=== PATIENT | female | born 1960 | race Caucasian/White ===

== ENCOUNTER 2022-04-01 20:55 | Outpatient (CLI) | payer OTHER, SELFPAY | END 2022-04-01 20:56 | disposition home or self-care (01) | LOC: AMB 04-07 11:41 | PROVIDERS: PCP Family Medicine; Visit Provider Family Medicine | DX: K92.1 Melena (principal); R19.5 Other fecal abnormalities; R19.7 Diarrhea, unspecified | CPT/HCPCS: A0425; A0429 ==

== ENCOUNTER 2022-04-01 21:15 | Emergency (ER) | payer OTHER, SELFPAY ==
[2022-04-01] VITALS (7 sets, daily range): BP systolic 100–137; BP diastolic 59–95; PULSE 109–116; TEMP 36.5; O2SAT 93–95; BMI 34.3
--- NOTE | 2022-04-01 22:18 | CRLHL7_ITS ---
For Patients: As a result of the Century Cures Act, medical imaging exams and procedure reports are released immediately into your electronic medical record. You may view this report before your referring provider. If you have questions, please contact your health care provider. INDICATION: Abdominal pain and hematochezia. TECHNIQUE: CT abdomen and pelvis without contrast. COMPARISON: None. FINDINGS: Lower chest: Mild bibasilar atelectasis. Liver: Diffuse hepatic steatosis. Gallbladder and bile ducts: Cholecystectomy. Pancreas: Unremarkable. No mass or inflammation. Spleen: Normal in size. No masses. Adrenal glands: Normal in size. No nodules. Kidneys: Normal in size. No suspicious masses, stones, or hydronephrosis. GI tract: Significant wall thickening and edema throughout the cecum, ascending colon, transverse colon and the predominant portion of the descending colon. Sigmoid and rectum are unremarkable. Small bowel loops are unremarkable. Appendix is not well visualized. Vasculature: Abdominal aorta is normal in caliber. Lymph nodes: No lymphadenopathy. Peritoneum/Abdominal Wall: Redemonstrated circumscribed fat density structure in the mid pelvis (2/145), may be related to prior epiploic appendagitis or omental infarct. Alternatively may represent a fatty lymph node. No sign of mass or infiltration. No free air or significant free fluid. Pelvis: Unremarkable. No pelvic masses. Bones: Unremarkable for age. IMPRESSION: Circumferential thickening and edema throughout the majority of the large colon with surrounding fat stranding most consistent with infectious/inflammatory colitis. The significant edema and wall thickening is more often seen with C diff colitis. Diffuse hepatic steatosis. Please note that all CT scans at this facility use dose modulation, iterative reconstruction, and/or weight-based dosing when appropriate to reduce radiation dose to as low as reasonably achievable. Dictated by Avtar Hua MD @ 04/01/2022 11:19:35 PM (Electronically Signed)
--- NOTE | 2022-04-01 23:10 | ED_ITS ---
HPI - Abdominal Pain General Chief Complaint: Abdominal Pain Stated Complaint: rectal bleeding Time Seen by Provider: 04/01/22 22:02 Source: patient, RN notes reviewed and old records reviewed Mode of arrival: EMS Limitations: other History of Present Illness HPI narrative: 62-year-old woman presenting to the emergency department with concern of blood in stool. Resident of [place]. She apparently has informed staff. She has had a couple of episodes of diarrheal stools with blood. Interview is challenged with recollection and slow distracted responses. She thinks was maybe the chili she had over the weekend that had triggered this. Is having some abdominal pain as well though that is not the initial complaint to me. I get the idea that the blood in her stool was voluminous the way she says ?oh y es?! to queries. Has not been feeling hot. She is unsure about this but apparently has not been on antibiotics recently. I am unable to verify this in record. Medical Problems: Schizoaffective disorder Schizoaffective disorder, bipolar type History of alcoholism Anxiety disorder Hyperlipidemia Hx of pancreatitis Rash Closed head injury Collar bone pain L sternoclavicular mass DMII (diabetes mellitus, type 2) Ear problem Hearing problem Chronic constipation Surgical Problems: History of tonsillectomy Related Data Home Medications Medication Instructions Recorded Confirmed Lactobacillus 4 cap PO DAILY 03/26/22 03/26/22 acidophilus-Bifidobac.animalis 31 billion cell capsule acetaminophen 325 mg tablet 325 - 650 mg PO Q4H PRN tab 03/26/22 03/26/22 votfx-n-kytbkuvvbpbbz 300 unit 300 unit PO QDAY PRN 03/26/22 03/26/22 disintegrating tablet buspirone 5 mg tablet 10 mg PO BID PRN tab 03/26/22 03/26/22 clozapine 100 mg tablet 225 mg PO .Bedtime 03/26/22 03/26/22 clozapine 25 mg tablet 225 mg PO .Bedtime 03/26/22 03/26/22 cranberry fruit concentrate 250 mg 450 mg PO TID tab 03/26/22 03/26/22 chewable tablet (Azo Cranberry) diphenhydramine HCl 25 mg capsule 25 mg PO cap 03/26/22 03/26/22 estradiol 0.01% (0.1 mg/gram) 1 VAGINAL DAILY 03/26/22 03/26/22 vaginal cream fluticasone propionate 50 1 INTRANASAL .Daily as needed PRN 03/26/22 03/26/22 mcg/actuation nasal spray,suspension ibuprofen 200 mg tablet 400 mg PO BID PRN tab 03/26/22 03/26/22 ketoconazole 2 % shampoo 1 TOPICAL .Twice Weekly 03/26/22 03/26/22 loperamide 1 mg/5 mL oral liquid 1 mg PO 03/26/22 03/26/22 magnesium hydroxide 400 mg/5 mL 30 ml PO .Daily as needed PRN ml 03/26/2203/26 oral suspension miconazole nitrate 2 % topical 2 applic TOPICAL PRN 03/26/22 03/26/22 cream mometasone 0.1 % topical solution 0.1 TOPICAL BID 03/26/22 03/26/22 fplanofq-kqulsbqf-vfif 8 mg-folic 1 tab PO QDAY 03/26/22 03/26/22 ac 400 mcg-vit K 10 mcg chew tablet (Centrum Chewables) polyethylene glycol 3350 17 17 g PO .Daily as needed PRN g 03/26/22 03/26/22 gram/dose oral powder quetiapine 200 mg tablet 100 mg PO .Am tab 03/26/22 03/26/22 quetiapine 300 mg tablet 300 mg PO .Bedtime tab 03/26/22 03/26/22 sennosides 8.6 mg-docusate sodium 1 PO .Daily as needed PRN 03/26/22 03/26/22 50 mg tablet sodium chloride 0.65 % nasal spray 0.65 INTRANASAL .As Needed PRN 03/26/22 03/26/22 aerosol triamcinolone acetonide 0.1 % 1 applic TOPICAL BID 03/26/22 03/26/22 topical cream wheat dextrin 3 gram/3.8 gram oral 1 PO 03/26/22 03/26/22 powder Previous Rx's Medication Instructions Recorded nystatin 100,000 unit/gram topical 1 applic TOPICAL TID #30 g 03/26/22 powder Bifidobacterium infantis 4 mg 4 mg PO QDAY #30 cap 03/28/22 capsule (Align) aspirin 81 mg tablet,delayed 81 mg PO DAILY #30 tab 03/28/22 release cholecalciferol (vitamin D3) 25 1,000 unit PO DAILY #30 tab 03/28/22 mcg (1,000 unit) tablet docusate sodium 100 mg capsule 100 mg PO BID #60 cap 03/28/22 lactase 3,000 unit tablet 3,000 unit PO TID #90 tab 03/28/22 loratadine 10 mg tablet 10 mg PO DAILY #30 tab 03/28/22 mirabegron 50 mg tablet,extended 50 mg PO DAILY #30 tab 03/28/22 release 24 hr omeprazole 20 mg capsule,delayed 20 mg PO DAILY #30 cap 03/28/22 release simvastatin 20 mg tablet 20 mg PO .Bedtime #30 tab 03/28/22 Allergies Allergy/AdvReac Type Severity Reaction Status Date / Time lanolin Allergy Intermediate Rash Verified 03/26/22 16:07 nickel Allergy Intermediate Rash Verified 03/26/22 16:07 latex Allergy Mild Unknown Verified 03/26/22 16:07 Sulfa drugs Allergy Mild Unknown Uncoded 03/26/22 16:07 Pollen AdvReac Intermediate runny Uncoded 03/26/22 16:07 nose, sneezing Review of Systems Status of ROS Reports: 10 or more systems reviewed and unremarkable except as noted in History and below Narrative This was attempted concerned of accuracy of this review of systems [facility] Medical History History of alcoholism History of pancreatitis Surgical History History of tonsillectomy (04/14/13) Social History Smoking Status: Former smoker Second hand tobacco smoke exposure: No How often do you have a drink containing alcohol: never AUDIT-C Alcohol total score: 0 Non-prescribed substance use: denies use Exam Narrative: Exam Narrative: Pleasant. NAD. Lying on her left side. Shirt is high-riding abdomen. Breathing easily. Again, somewhat slowed and a little confused in responses. Cranial nerves 2 through 12 intact Skin is warm and dry. Moving all extremities without difficulty. She is well perfused peripherally. Cardiovascular elevated rate regular rhythm. Distant. Oropharynx moist Abdomen is normoactive bowel sounds soft. Overweight. While generally tender is more so in the mid right and across the to the mid abdomen. No peritoneal signs appreciated. Const: Vital Signs, click to edit/add: Vital Signs - 24 hr 04/01/22 21:15 04/01/22 21:19 04/01/22 21:30 Temperature 97.7 F Pulse Rate [Left P ulse Oximeter] 114 H 114 H 113 H Blood Pressure [Ri ght Upper Arm] 137/80 137/80 108/72 Pulse Oximetry 95 95 94 04/01/22 22:00 04/01/22 22:45 04/01/22 23:00 Temperature Pulse Rate [Left P ulse Oximeter] 109 H 116 H 112 H Blood Pressure [Ri ght Upper Arm] 107/59 L 133/95 H 108/80 Pulse Oximetry 94 94 93 04/01/22 23:30 04/02/22 00:00 Temperature Pulse Rate [Left P ulse Oximeter] Blood Pressure [Ri ght Upper Arm] 100/64 95/70 Pulse Oximetry Documenting provider has reviewed patient's vital signs: yes Course Course Hospital Course: Curled on left side seems to be most comfortable. Blood pressure cuff has been reading off upper arm while she rests on the left arm She did not feel she needed anything for pain. I do think some IV fluids would be a good idea. Vital Signs Vital signs: Initial Vital Signs Pulse Rate 114 H 04/01/22 21:15 Blood Pressure 137/80 04/01/22 21:15 Blood Pressure Mean 99 04/01/22 21:15 Blood Pressure Position Supine 04/01/22 21:15 Pulse Oximetry 95 04/01/22 21:15 Oxygen Delivery Method 04/01/22 21:15 Vital Signs Pulse Rate 114 H 04/01/22 21:15 Blood Pressure 137/80 04/01/22 21:15 Pulse Oximetry 95 04/01/22 21:15 Temperature 97.7 F 04/01/22 21:19 Pulse Rate 112 H 04/01/22 23:00 Blood Pressure 95/70 04/02/22 00:00 Pulse Oximetry 93 04/01/22 23:00 MDM - Abdominal Pain MDM Narrative Medical decision making narrative: Given difficulty of interview, diffuse abdominal tenderness and blood as described in stool 80 think imaging would be prudent here. Labs pending as well. Made a couple of attempts to obtain stool sample for culture, C diff as well as stool guaiac. Ms. Christopher did not want to and/or was unable to leave a sample. I did review CT imaging can appreciate diffuse inflammatory changes from the colon more so on the right side colon. Slow to results white count did come back notably elevated at 16.8 and sodium was low at 129. Unsure what baseline is though was 140 1 year ago. Was ordered for a L and half of normal saline here. Would presume sodium around 132 on departure. Needs to follow up for recheck and med review. I'm unsure what changes have occurred recently. If she can produce a sample given radiology over-read, would screen for C diff as well as stool culture. Treatment accordingly. Medical Records Attestation: I reviewed the patient's medical records. Lab Data Attestation: I reviewed the patient's lab results. Labs: Lab Results 04/01/22 04/01/22 04/01/22 Range/Units 22:26 22:50 22:50 WBC 16.77 H (4.50-11.00) K/uL RBC 4.96 (4.00-5.20) m/uL Hgb 14.9 (12.0-16.0) gm/dL Hct 44.2 (33.0-51.0) % MCV 89 (80-100) fL MCH 30 (26-34) pg MCHC 34 (32-36) gm/dL Plt Count 280 (140-440) K/uL Neut % (Auto) 85.2 H (42.0-72.0) % Lymph % (Auto) 5.9 L (20-44) % [place] % (Auto) 7.6 (0.0-11.0) % Eos % (Auto) 0.1 (0.0-7.0) % Baso % (Auto) 0.2 (0.0-3.0) % Neut # (Auto) 14.30 H (1.7-7.0) K/uL Lymph # (Auto) 1.00 (0.90-2.90) K/uL [place] # (Auto) 1.30 H (0.00-0.90) K/UL Eos # (Auto) 0.00 (0.00-0.50) K/uL Baso # (Auto) 0.00 (0.00-0.30) K/uL Abs Immat Gran (auto) 0.20 (0.00-0.30) K/uL Imm/Tot Granulo (auto) 1.0 % Sodium 129 L (135-149) mmol/L Potassium 3.8 (3.6-5.1) mmol/L Chloride 98 (96-114) mmol/L Carbon Dioxide 24 (20-32) mmol/L BUN 22 (7-30) mg/dL Creatinine 0.9 (0.5-1.5) mg/dL Estimated Creat Clear 52.49 Estimated GFR 72 ml/min Glucose 210 H (60-115) mg/dL Calcium 8.9 (8.4-10.6) mg/dL Total Bilirubin 0.7 (0.1-1.5) mg/dL AST 43 H (12-35) U/L ALT 32 (4-35) U/L Alkaline Phosphatase 133 (40-150) U/L C-Reactive Protein 16.0 H (0.5-1.0) mg/dL Total Protein 5.8 L (6.0-8.3) g/dL Albumin 3.5 (3.3-5.0) g/dL SARS-CoV-2 (PCR) Negative SARS-CoV-2 (Negative) Discharge Plan Discharge Clinical Impression: Colitis, Hyponatremia Patient Disposition: Home w/ Parent or Adult Condition: Stable Additional Instructions: Focus on hydration. Slow advance of diet over the next 36 hours. Clear liquid/diluted juices. Increase to thicker soups and smoothies. Rice. [place]. Please follow-up at the end of this week to recheck labs. Also schedule follow-up with primary care provider for medication review and in light of this hyponatremia If you can produce a stool sample we can tested. You are welcome to bring it back here or take it to clinic. Return here for worsening blood in your stool, lightheadedness, increasing persistent abdominal pain, associated fever. Prescriptions: No Action wheat dextrin 3 gram/3.8 gram powder 1 PO 0RF estradiol 0.01 % (0.1 mg/gram) cream 1 vaginal DAILY 0RF clozapine 25 mg tablet 225 mg PO .Bedtime 0RF diphenhydramine HCl 25 mg capsule 25 mg PO 0RF magnesium hydroxide 400 mg/5 mL suspension 30 ml PO .Daily as needed PRN0RF loperamide 1 mg/5 mL liquid 1 mg PO 0RF quetiapine 200 mg tablet 100 mg PO .Am 0RF clozapine 100 mg tablet 225 mg PO .Bedtime 0RF buspirone 5 mg tablet 10 mg PO BID PRN0RF quetiapine 300 mg tablet 300 mg PO .Bedtime 0RF Centrum Chewables 8 mg-400 mcg- 10 mcg tablet,chewable 1 tab PO QDAY 0RF Azo Cranberry 250 mg tablet,chewable 450 mg PO TID 0RF miconazole nitrate 2 % cream 2 applic topical PRN0RF Rx Instructions: Apply to affected areas BID PRN mometasone 0.1 % solution 0.1 topical BID 0RF Rx Instructions: 2 drops to itchy ear twice daily for 7 days. sodium chloride 0.65 % aerosol,spray 0.65 intranasal .As Needed PRN0RF triamcinolone acetonide 0.1 % cream 1 applic topical BID 0RF Rx Instructions: Apply to the affected area for up to 2 wks. prn fluticasone propionate 50 mcg/actuation spray,suspension 1 intranasal .Daily as needed PRN0RF ibuprofen 200 mg tablet 400 mg PO BID PRN0RF Lacto.acidophilus-Bif.animalis 31 billion cell capsule 4 cap PO DAILY 0RF ketoconazole 2 % shampoo 1 topical .Twice Weekly 0RF polyethylene glycol 3350 17 gram/dose powder 17 g PO .Daily as needed PRN0RF sennosides-docusate sodium 8.6-50 mg tablet 1 PO .Daily as needed PRN0RF acetaminophen 325 mg tablet 325 - 650 mg PO Q4H PRN0RF rrmnc-d-suwjslfmwiman 300 unit tablet,disintegrating 300 unit PO QDAY PRN0RF nystatin 100,000 unit/gram powder 1 applic topical TID Qty: 30 2RF aspirin 81 mg tablet,delayed release (DR/EC) 81 mg PO DAILY Qty: 30 10RF cholecalciferol (vitamin D3) 25 mcg (1,000 unit) tablet 1,000 unit PO DAILY Qty: 30 10RF docusate sodium 100 mg capsule 100 mg PO BID Qty: 60 10RF mirabegron 50 mg tablet extended release 24 hr 50 mg PO DAILY Qty: 30 10RF omeprazole 20 mg capsule,delayed release(DR/EC) 20 mg PO DAILY Qty: 30 10RF simvastatin 20 mg tablet 20 mg PO .Bedtime Qty: 30 10RF loratadine 10 mg tablet 10 mg PO DAILY Qty: 30 10RF lactase 3,000 unit tablet 3,000 unit PO TID Qty: 90 10RF Align 4 mg capsule 4 mg PO QDAY Qty: 30 10RF Follow Up/Referrals: Guicho Bridges MD [Primary Care Provider] - Stand Alone Forms: MyHealth Info Instructions
[2022-04-01 23:12] LABS: Albumin* 3.5 g/dL (3.3-5.0); Chloride* 98 mmol/L (96-114)
[2022-04-01 23:13] LABS: Potassium* 3.8 mmol/L (3.6-5.1); Sodium* 129 mmol/L (135-149)
[2022-04-01 23:15] LABS: Bilirubin Total* 0.7 mg/dL (0.1-1.5); Creatinine* 0.9 mg/dL (0.5-1.5); Est. Creatinine Clearance* 52.49; Estimated Glomerular Filt Rate 72 ml/min
[2022-04-01 23:16] LABS: Alanine Aminotransferase* 32 U/L (4-35); Alkaline Phosphatase* 133 U/L (40-150); Aspartate Amino Transferase* 43 U/L (12-35); Blood Urea Nitrogen* 22 mg/dL (7-30); Carbon Dioxide* 24 mmol/L (20-32); Glucose* 210 mg/dL (60-115); Total Protein* 5.8 g/dL (6.0-8.3)
[2022-04-01 23:17] LABS: Calcium* 8.9 mg/dL (8.4-10.6)
[2022-04-02] VITALS: BP 95/70
[2022-04-02 00:06] LABS: SARS PCR* Negative SARS-CoV-2 (Negative)
--- NOTE | 2022-04-02 00:10 | PC.NURSE ---
Got pt up to commode to attempt to collect stool sample. Pt sat on commode for approx 30 seconds before she got off the commode and got back into bed. Pt states unable to provide sample at this time. notified.
[2022-04-02 00:13] LABS: Basophils Percent Auto 0.2 % (0.0-3.0); Eosinophils Percent Auto 0.1 % (0.0-7.0); Hematocrit 44.2 % (33.0-51.0); Hemoglobin* 14.9 gm/dL (12.0-16.0); Lymphocytes Percent Auto 5.9 % (20-44); Mean Corpuscular HGB Conc 34 gm/dL (32-36); Mean Corpuscular Hemoglobin 30 pg (26-34); Mean Corpuscular Volume 89 fL (80-100); Monocytes Percent Auto 7.6 % (0.0-11.0); Neutrophils Percent Auto 85.2 % (42.0-72.0); Platelet Count* 280 K/uL (140-440); Red Blood Count 4.96 m/uL (4.00-5.20); White Blood Count* 16.77 K/uL (4.50-11.00)
[2022-04-02 00:14] LABS: Slide Review Reflex No
[2022-04-02] MEDS: 0.9 % SODIUM CHLORIDE 500 ML 500 ML IV (00:23)
--- OUTSIDE RECORDS SUMMARY | 2022-04-23 16:36 | XMS_ITS | Continuity of Care Document ---
:1960 Author Organization [facility] Address [address] [address] [place] [address] Phone Care Team Providers Name Role Phone No Information Unavailable Unavailable Advance Directives Directive Yes / No Effective Date File Name No Information Encounters Encounter Practice Location Reason(s) Diagnoses Date Provider Provide rs Description For Visit Copied on Encounter [facility] No No Digest[facility] Information -2020 Information [facility], [address] [address], [place], [place], [id number], [place] tel:[phone] Family History Family Member Type Diagnosis Age At Onset No Information Payers Payer name Insurance type Covered democrat ID Authorization(s ) No Information Social History Type Description Quantity Date Captured Comments Sex Female Smoking Status No Information Chief Complaint And Reason For Visit No Information Reason For Referral Reason For Referral No Information Plan Of Treatment Date Type Action Status No Information History Of Present Illness Encounter Date Complaint History Of Present I llness No Information Functional Status Date Functional Assessment No Information Instructions Date Instruction Additional Informati on No Information Assessments Type Assessment Date No Information Patient Care Teams Name Effective Dates (start - stop) Status M embers No Information
--- OUTSIDE RECORDS SUMMARY | 2022-04-23 16:36 | XMS_ITS | Continuity of Care Document ---
:1960 Author Organization [facility] Address [address] [address] [place] [address] Phone Care Team Providers Name Role Phone No Information Unavailable Unavailable Advance Directives Directive Yes / No Effective Date File Name No Information Encounters Encounter Practice Location Reason(s) Diagnoses Date Provider Provide rs Description For Visit Copied on Encounter [facility] No No Digestive Information -2020 Information [facility], [address] [address], [place], [place], [id number], [place] tel:[phone] Family History Family Member Type Diagnosis Age [...]
== END 2022-04-02 01:58 | disposition home or self-care (01) ==
PROVIDERS: Emergency Provider Family Medicine; PCP Family Medicine
DX: K52.9 Noninfective gastroenteritis and colitis, unspecified (principal); E87.1 Hypo-osmolality and hyponatremia
CPT/HCPCS: 36415; 74176; 80053; 85025; 86140; 87045; 87046; 87427; 87493; 87635; 96360; 99283; J7120

== ENCOUNTER 2022-05-10 14:39 | Outpatient (CLI) | payer OTHER, SELFPAY ==
[2022-05-10 11:13] LABS: Creatinine Urine 265.4 mg/dL
[2022-05-10 11:21] LABS: Microalbumin Creatinine Ratio 10 mg/g (0-30); Microalbumin Urine 4 mg/dL
[2022-05-10 11:23] LABS: Chloride* 105 mmol/L (96-114); Sodium* 139 mmol/L (135-149)
[2022-05-10 11:24] LABS: Potassium* 4.2 mmol/L (3.6-5.1)
[2022-05-10 11:26] LABS: Alanine Aminotransferase* 22 U/L (4-35); Alkaline Phosphatase* 135 U/L (40-150); Aspartate Amino Transferase* 36 U/L (12-35); Bilirubin Total* 0.3 mg/dL (0.1-1.5); Blood Urea Nitrogen* 18 mg/dL (7-30); Carbon Dioxide* 26 mmol/L (20-32); Cholesterol* 214 mg/dL (90-199); Creatinine* 0.7 mg/dL (0.5-1.5); Estimated Glomerular Filt Rate 98 ml/min; Glucose* 173 mg/dL (60-115); Total Protein* 6.3 g/dL (6.0-8.3); Triglycerides* 392 mg/dL (40-149)
[2022-05-10 11:27] LABS: HDL Cholesterol* 47 mg/dL (>=50); LDL Cholesterol Calculated 89 mg/dL (<100)
== END 2022-05-10 14:40 | disposition home or self-care (01) ==
PROVIDERS: PCP Family Medicine; Visit Provider Family Medicine
DX: E11.9 Type 2 diabetes mellitus without complications (principal); Z13.6 Encounter for screening for cardiovascular disorders
CPT/HCPCS: 80053; 80061; 82043; 82570

== ENCOUNTER 2022-06-20 09:00 | Outpatient (RCR) | payer OTHER, SELFPAY ==
--- NOTE | 2022-05-15 14:21 | PT.OPDNX ---
PT [facility] Daily Note PT [facility] Daily Note Start: 03/13/22 11:00 Freq: Status: Active Protocol: Document 05/15/22 12:48 CLBrisa (Rec: 05/15/22 14:19 EFRA [id number]) E-signed By Neida Do, PT PT OP Daily Progress Note Visit Information Note Type Daily Note,Recert/Progress Note Visit Number [id number] Cancellation Note Cancelled Documentation Eval date of 09/11/21 Insurance Information Medical Diagnosis LBP Treating Diagnosis Core Weakness, Hip Weakness, Functional strength deficit Subjective Subjective I have been walking more. That seems to help my back, but my Rt knee is cont to hurt. Pain Comments Shoulder and back pain are minimal to absent. Pain at Rt knee has her more concerned now. Pain is not increased with ex we complete here. Precautions Treatment Precautions/Contraindications Depression, Cognitive impairments, obesity, resp issues, hypertension Weight Bearing Status Full Weight Bearing Home Exercise Home Exercise Comments Shoulder program, see in original diagnosis for specifics. Use of light free weights and theraband: ceiling thrusts, ABC's, scaption, hor ABD and rowing with bent elbow). Objective Patient Instructed in Risks/Benefits Yes Therapeutic Exercise Therapeutic Exercise Minutes (minutes) 51 Therapeutic Exercise: To Restore she completed a gym program Functional Status today of: -NuStep X 6 min at level 4, trying to maintain 50+ spm -UBE level 4 X 4 min at slow to mod pace -bird/dog at the wall with 5 sec HOLD X 10 reps -ball/wall push ups X 20 reps -Leg press 80# X 20 reps and 70# X 20 reps -Rowing at cc plate 3 X 2 sets of 15 reps -shoulder EXT at cc plate 2.5 X 20 reps -hand to opp knee brain gym ex X 30 feet -ham curl plate 4 X 40 reps -4 step ups X 15 reps keila -standing ketle wise lift with both hands waist to sternum 18# X10 reps -standing NBOS 2# weights with scaption X 20 reps -tandom stance X 20 sec trial keila -supine LL over theraball, bridge X 10 reps with 5 second HOLD -tandom stance on foam X 20 sec, NBOS with EO -A/D flight of 5 steps X 4 reps. Reciprocal pattern both A/D. Use of only 1 railing ( sons house to basement only has one railing, this is one of her personal goals to be able to go visit them more frequently and use movie viewing room downstairs) -tandom gait 20 feet backward -SLS average Rt side 10 sec, Lt 7 sec *HEP of -arnaud pose X 30 sec X 3 reps . -HOR ABD with OTB -pelvic rock 6/12 positions -shoulder rowing -pelvic clock/rock X 20 slow and steady reps -LT rotation X 2 reps keila with HOLD of 20 sec -Dbl KTC (hips rotated to allow room for abdomen) X 2 reps of 20 sec HOLD -seated unsupported with good posture; hip flex/march in place for core. Overpressure for increased core use; hip isometrics -reverse bowling with 2# weights -hip ABD/EXT combo with GTB Manual Therapy Techniques Manual Therapy Minutes (minutes) 8 Manual Therapy Techniques to increase circulation, improve alignment and reduce c /o strain, we completed: -prone position for moderate pressure tissue massage, PA mobs lower thoracic and lumbar grade 2. Sacral mobs (superior) of grade 3 PA's, side glides Rt to Lt and Lt to Rt. mm bending lumbar psps and glut med/max and piriformis TPR. Grade 3 PA mobs mid to lower thoracic Treatment Minutes Timed Code Treatment Minutes 59 Total Treatment Time 59 Billing Units Manual Therapy Units 1 Therapeutic Exercise Units 3 Assessment/Impression Assessment/Impression She requires nearly constant verbal cuing to stay focused and on task at hand, as she talks and stops her repetitions. No breaks required. Worked at a moderate but steady pace. 2 water stops for about 45 seconds. She requested help getting up from supine and up from prone, but was IND in both. She cont to c/o Rt knee pain, but does not compensate with WB or have reduced AROM, no edema, unable to recreate pain with palpation of full knee. Able to A/D stairs reciprocally. Nice progress towards goals. Plan of Care Physical Therapy Goals In 3-5 visits, Yudi will be able to report: 1. IND in proper execution of HEP, partially met. MET 2. Sit to stand without use of keila UE to assist, pain reduced by 50%., MET 2A. As above, but without use of keila UE 75% of the time. MET In 8-10 visits, Yudi will be able to report: 1. Reduced discomfort reported in pm with prolonged sitting at least 90 min without pain greater than 2/10 90% of the time. Partially met. Ok for 60 min, 75% of the time. 2. Maintain proper posture with sitting at least 5 min, standing 3 min. Client cont to have poor posture, requires verbal cuing to activate core mm and stand erect. 3. A/D flight of 20 steps with use of just one railing ( safely ambulate stairs to go to [employer] basement movie viewing/family room) MET
== END 2022-10-29 11:03 | disposition home or self-care (01) ==
PROVIDERS: PCP Family Medicine; Visit Provider Family Medicine
DX: M54.50 Low back pain, unspecified (principal)
CPT/HCPCS: 97110; 97140

== ENCOUNTER 2022-09-04 17:59 | Outpatient (REF) | payer OTHER, SELFPAY ==
[2022-09-04 19:43] LABS: Basophils Absolute Auto 0.03 K/uL (0.00-0.30); Basophils Percent Auto 0.5 % (0.0-3.0); Eosinophils Absolute Auto 0.16 K/uL (0.00-0.50); Eosinophils Percent Auto 2.4 % (0.0-7.0); Hematocrit 38.6 % (33.0-51.0); Hemoglobin* 12.8 gm/dL (12.0-16.0); Immature Granulocytes Abs Auto 0.01 K/uL (0.00-0.30); Immature Granulocytes Pct Auto 0.2 %; Lymphocytes Percent Auto 19.7 % (20-44); Mean Corpuscular HGB Conc 33 gm/dL (32-36); Mean Corpuscular Hemoglobin 31 pg (26-34); Mean Corpuscular Volume 92 fL (80-100); Monocytes Percent Auto 7.8 % (0.0-11.0); Neutrophils Absolute Auto 4.61 K/uL (1.7-7.0); Neutrophils Percent Auto 69.4 % (42.0-72.0); Platelet Count* 294 K/uL (140-440); RDW Coefficient of Variation % 12.9 % (11.5-15.5); Red Blood Count 4.19 m/uL (4.00-5.20); White Blood Count* 6.64 K/uL (4.50-11.00)
[2022-09-04 19:57] LABS: Slide Review Reflex No
--- OUTSIDE RECORDS SUMMARY | 2022-09-30 00:08 | XMS_ITS | Continuity of Care Document ---
:1960 Author Organization [facility] Address [address] [address] [place] [address] Phone Care Team Providers Name Role Phone No Information Unavailable Unavailable Advance Directives Directive Yes / No Effective Date File Name No Information Encounters Encounter Practice Location Reason(s) Diagnoses Date Provider Provide rs Description For Visit Copied on Encounter [facility] No No Digestive Information -2020 Information [facility], [address] [address], [place], [place], [id number], [place] tel:[phone] Family History Family Member Type Diagnosis Age At Onset No Information Payers Payer name Insurance type Covered constitution party ID Authorization(s ) No Information Social History [...]
== END 2022-09-04 18:00 | disposition home or self-care (01) ==
LOC: NPINS 17:59
PROVIDERS: PCP Family Medicine; Visit Provider Neurological Surgery
DX: F20.9 Schizophrenia, unspecified (principal); Z79.899 Other long term (current) drug therapy
CPT/HCPCS: 36415; 85025

== ENCOUNTER 2022-11-13 15:54 | Outpatient (CLI) | payer OTHER, SELFPAY ==
--- NOTE | 2022-11-13 16:00 | CRLHL7_ITS ---
For Patients: As a result of the Century Cures Act, medical imaging exams and procedure reports are released immediately into your electronic medical record. You may view this report before your referring provider. If you have questions, please contact your health care provider. INDICATION: Brown vaginal spotting TECHNIQUE: Ultrasound pelvis transabdominal and transvaginal for better assessment or to better visualize the endometrium. Real time sonographic images with Spectral and color Doppler imaging of the ovaries were obtained. COMPARISON: None FINDINGS: Uterus: 0.4 centimeters x 2.3 centimeter x 4.1 centimeter. Normal echotexture of the myometrium. No masses. Endometrium: Transvaginal imaging was performed to better evaluate the endometrium. A millimeter in thickness. No sign of endometrial mass or fluid. Right ovary: Not visualized. Left ovary: Not visualized. Cul-de-sac: No significant free fluid. IMPRESSION: Normal myometrium and endometrium. Ovaries are not visualized. Dictated by Uriel Win MD @ 11/13/2022 6:22:59 PM (Electronically Signed)
== END 2022-11-13 15:55 | disposition home or self-care (01) ==
LOC: US 15:55
PROVIDERS: PCP Family Medicine; Visit Provider Registered Nurse
DX: N93.9 Abnormal uterine and vaginal bleeding, unspecified (principal)
CPT/HCPCS: 76830; 76856

== ENCOUNTER 2023-02-25 09:07 | Outpatient (CLI) | payer OTHER, SELFPAY | END 2023-02-25 09:08 | disposition home or self-care (01) | LOC: NFLDREF 02-26 09:30 | PROVIDERS: PCP Family Medicine; Referring Provider Family Medicine; Visit Provider Family Medicine | DX: Z00.00 Encounter for general adult medical examination without abnormal findings (principal); E11.9 Type 2 diabetes mellitus without complications; R35.0 Frequency of micturition; L29.9 Pruritus, unspecified | CPT/HCPCS: 80053; 80061; 82043; 82570 ==

== ENCOUNTER 2023-04-02 14:30 | Outpatient (RCR) | payer OTHER, SELFPAY | END 2023-07-31 23:59 | disposition home or self-care (01) | PROVIDERS: PCP Family Medicine; Visit Provider Family Medicine | DX: R35.0 Frequency of micturition (principal); Z51.89 Encounter for other specified aftercare | CPT/HCPCS: 97110; 97140; 97162 ==

== ENCOUNTER 2023-04-29 10:36 | Outpatient (CLI) | payer OTHER, SELFPAY | END 2023-04-29 10:37 | disposition home or self-care (01) | PROVIDERS: PCP Family Medicine; Referring Provider Family Medicine; Visit Provider Family Medicine | DX: E78.5 Hyperlipidemia, unspecified (principal); R30.0 Dysuria; E11.9 Type 2 diabetes mellitus without complications; R52 Pain, unspecified; F41.9 Anxiety disorder, unspecified; K59.09 Other constipation; J30.2 Other seasonal allergic rhinitis; E73.9 Lactose intolerance, unspecified; G47.00 Insomnia, unspecified; R35.0 Frequency of micturition; R14.0 Abdominal distension (gaseous); Z23 Encounter for immunization | CPT/HCPCS: 80053; 80061; 82043; 82570 ==

== ENCOUNTER 2023-06-10 20:24 | Outpatient (REF) | payer OTHER, SELFPAY ==
--- OUTSIDE RECORDS SUMMARY | 2023-06-10 20:28 | XMS_ITS | Continuity of Care Document ---
Author Name Unknown Organization [facility] Address [address] [address] [place] [address] Phone Care Team Providers Care Putaway Driver Name Role Phone No Information Unavailable Unavailable Advance Directives Directive Yes / No Effective Date File Name No Information Encounters Encounter Description Practice Location Reason(s) For Visit Diagnoses Date Provider Providers Copied on Encounter [facility], [address] [address], [place], [place], [id number], [place] tel:[phone] No Information No Information Family History Family Member Type Diagnosis Age At Onset No Information Payers Payer name Insurance type Covered green party ID Authoriza tion(s) No Information Social History Type Description Quantity Date Captured Comments Sex Female Smoking Status No Information Chief Complaint And Reason For Visit No Information Reason For Referral Reason For Referral No Information History Of Present Illness Encounter Date Complaint History Of Prese nt Illness No Information Functional Status Date Functional Assessmen t No Information Instructions Date Instruction Additional Infor mation No Information Assessments Type Assessment Date No Information Patient Care Teams Name Effective Dates (start - stop) Status Members No Information
[2023-06-10 21:39] LABS: Basophils Absolute Auto 0.05 K/uL (0.00-0.30); Basophils Percent Auto 0.6 % (0.0-3.0); Eosinophils Absolute Auto 0.16 K/uL (0.00-0.50); Hematocrit 40.7 % (33.0-51.0); Hemoglobin* 13.4 gm/dL (12.0-16.0); Immature Granulocytes Abs Auto 0.01 K/uL (0.00-0.30); Immature Granulocytes Pct Auto 0.1 %; Lymphocytes Percent Auto 19.5 % (20-44); Mean Corpuscular HGB Conc 33 gm/dL (32-36); Mean Corpuscular Hemoglobin 30 pg (26-34); Mean Corpuscular Volume 92 fL (80-100); Monocytes Percent Auto 7.9 % (0.0-11.0); Neutrophils Absolute Auto 5.67 K/uL (1.7-7.0); Neutrophils Percent Auto 69.9 % (42.0-72.0); Platelet Count* 322 K/uL (140-440); RDW Coefficient of Variation % 12.7 % (11.5-15.5); Red Blood Count 4.43 m/uL (4.00-5.20); White Blood Count* 8.11 K/uL (4.50-11.00)
[2023-06-10 21:40] LABS: Slide Review Reflex No
== END 2023-06-10 20:25 | disposition home or self-care (01) ==
LOC: NPINS 20:24
PROVIDERS: PCP Family Medicine
DX: R82.90 Unspecified abnormal findings in urine (principal); J02.9 Acute pharyngitis, unspecified; N89.8 Other specified noninflammatory disorders of vagina; F25.9 Schizoaffective disorder, unspecified
CPT/HCPCS: 85025; 87086

== ENCOUNTER 2023-07-23 14:53 | Outpatient (CLI) | payer OTHER, SELFPAY ==
--- NOTE | 2023-07-23 15:00 | CRLHL7_ITS ---
For Patients: As a result of the Century Cures Act, medical imaging exams and procedure reports are released immediately into your electronic medical record. You may view this report before your referring provider. If you have questions, please contact your health care provider. BILATERAL SCREENING MAMMOGRAM WITH COMPUTER-AIDED DETECTION AND TOMOSYNTHESIS TECHNIQUE: CC and MLO views were obtained. These mammographic images have been obtained using full-field digital technique. These mammographic images were interpreted with the benefit of computer-aided detection. Breast Tomosynthesis was used in this interpretation. COMPARISON FILM: 05/24/21, 11/25/19, 05/14/18. FINDINGS: The breasts are almost entirely fatty IMPRESSION: There is no radiographic evidence for malignancy. ASSESSMENT: BI-RADS Category 1: Negative RECOMMENDATION: Routine screening mammogram in 1 year. A lay language report of this examination will be provided to the patient. Uriel Amado M.D. Diagnostic Radiologist [email or web address] JESSICA/Dictated by: Uriel Amado MD @ 07/24/2023 12:28:00 PM (Electronically Signed)
== END 2023-07-23 14:54 | disposition home or self-care (01) ==
LOC: MAMMO 14:55
PROVIDERS: PCP Family Medicine; Visit Provider Family Medicine
DX: Z12.31 Encounter for screening mammogram for malignant neoplasm of breast (principal)
CPT/HCPCS: 77063; 77067

== ENCOUNTER 2023-10-09 14:45 | Outpatient (RCR) | payer OTHER, SELFPAY ==
--- NOTE | 2023-08-20 07:31 | PT.OPEX ---
[facility] Eval initial evaluation PT [facility] Outpatient Eval Start: 08/19/23 07:37 Freq: Status: Active Protocol: Document 08/19/23 07:37 HARRISON (Rec: 08/19/23 17:40 HARRISON [id number]) E-signed By Teo Rod DPT Physical Therapy Outpatient Evaluation Insurance Information Recert Due Date 11/12/23 Insurance Name Other; See Comments Insurance Information/Comments [employer] Medical Diagnosis chronic low back pain Treating Diagnosis low back pain muscle weakness Referring MD Guicho Bridges Subjective Subjective Yudi comes into clinic dealing with chronic low back pain today. She has been to physical therapy before in the past due to low back pain along with pelvic girdle type pain. Still mentions having some pelvic floor issues, incontinence, but also increased R low back pain. She does still perform some of her HEP that she was given in her prior session but potentially. Also mentions how she is looking into some cosmetic surgery for weight loss. Overall she wants to work on her pain levels and improve her mobility ie walking standing bed mobility sit to stand *spent some time discussing if she is wanting to continue pelvic floor specific therapy following up with a different clinician may be warranted at this point. Current Work Status Unemployed Precautions Treatment Precautions/Contraindications hx of surgery: gallbladder, polyp removal on colon, schizoaffective disorder , anxiety, hx alcoholism Objective Other/Pertinent Objective *limited evaluation due to patient tolerance and increased cueing LUMBAR ROM Flexion: mod loss Extension: max loss with pain limits Right Sidebend: mod loss pain with motion Left Sidebend: min loss LE MMT Hip flexion:4/5 B Hip abduction: 4-/5 B - performed seated due to patient tolerance knee extension: 4+/5 B Knee Flexion: 4+/5 B JOINT MOBILITY/PALPATION increased PSIS pain with palpation increased midline lumbar pain with hook lying position SPECIAL TESTS unable to formally assess due to patient limitations with bed mobility and pain level Assessment Assessment/Impression Pt is a 63 yr old female who presents with concerns of low back pain. . Patient also has notable objective findings including limited ROM and decreased strength also likely contributing to the problem. Patient is a good candidate for skilled therapy to target deficits described above. Skilled PT intervention is necessary for use of therapeutic exercise manual therapy, neuromuscular re- education, gait training, and therapeutic activity. Functional impairments include difficulty with: walking, sitting, standing . See appropriate sections of PT eval for complete list of goals and POC. D/C plan and criteria is for pt to achieve the goals as listed below or until max rehab potential is met. Pt was agreeable with plan of care and goals established Plan of Care Rehabilitation Potential Fair Physical Therapy Goals ST GOALS Patient will demonstrate/ report ability to walk for 10 minutes with pain level <1/10, to allow for community and household ambulation within 4- 5 weeks Pt will be able to perform 10 sit to stands without UE assist to allow for independence with transfers within 4-5 weeks Pt will be able to perform supine to sit/sit to supine without pain independently within 4-5 weeks to allow for independence in transfers LT goals Pt will be independent with HEP within 8-10 weeks to allow for independence and continued improvement past formal therapy Patient will demonstrate/ report ability to walk for 15- 25 minutes with pain level <1/ 10, to allow for community and household ambulation within 8 -10 weeks Patient will demonstrate/ report ability to stand for 10 minutes with pain level <1/10 , to allow for home , recreational and work tasks within 8-10 weeks Coordination/Communication With Referral Source Treatment Plan/Direct Interventions Gait Training,Joint Mobilization,Manual Therapy, Neuromuscular Re-ed,Self-Care/ Home Management,Therapeutic Activities,Therapeutic Exercises Frequency/Duration 1-2 visits a week for 6-12 visits Patient Will Be Discharged From Therapy Completion of LTG(s), Independent w/HEP Evaluation Billing Untimed Code Treatment Minutes 40 Complexity Moderate Certification Information Physician Comment/Change : Physician NPI Number #
== END 2024-01-06 10:24 | disposition home or self-care (01) ==
PROVIDERS: PCP Family Medicine; Visit Provider Family Medicine
DX: M54.50 Low back pain, unspecified (principal); G89.29 Other chronic pain; M62.81 Muscle weakness (generalized); Z51.89 Encounter for other specified aftercare
CPT/HCPCS: 97110; 97140; 97162

== ENCOUNTER 2024-01-27 10:48 | Outpatient (CLI) | payer OTHER, SELFPAY ==
--- OUTSIDE RECORDS SUMMARY | 2024-01-27 10:50 | XMS_ITS | Clinical Summary ---
Author Name Unknown Organization [facility] Address [place], [place] [address] Care Team Providers Care Hereditary Cancer Program Coordinator Name Role Phone Guicho Bridges MD Primary Care Provider [phone] Allergies Active Allergy Reactions Criticality Noted Date Comments Chlorpheniramine-Phenylpropan Hives 2015 Lanolin Rash 05/06/2016 Latex Hives 05/06/2016 Itchy skin Pollen Extracts Itching 05/06/2016 Sulfa (Sulfonamide Antibiotics) Rash 04/16 Medications Medication Sig Dispensed Refills Start Date End Date Status aspirin (ECOTRIN) 81 mg enteric coated tablet Take 1 tablet by mouth once daily with a meal. 0 05/06/2016 Active cloZAPine (CLOZARIL) 100 mg tablet Take 1 tablet by mouth at bedtime. No results found for: WBC No results found for: ABSNEUTS 0 05/06/2016 Active cloZAPine (CLOZARIL) 25 mg tablet Take 1 tablet by mouth 2 times daily. No results found for: WBC No results found for: ABSNEUTS 0 05/06/2016 Active lactase (DAIRY RELIEF) 3,000 unit tablet Take 1 tablet by mouth 3 times daily with meals. 0 05/06/2016 Active QUEtiapine (SEROQUEL) 200 mg tablet Take 1 tablet by mouth at bedtime. 0 05/06/2016 Active simvastatin (ZOCOR) 20 mg tablet Take 1 tablet by mouth at bedtime. 0 05/06/2016 Active cholecalciferol (VITAMIN D) 1,000 unit tablet Take 1 tablet by mouth once daily. 0 05/06/2016 Active mirabegron EXTENDED-release (MYRBETRIQ) 50 mg tabletIndications:Ur inary frequency Take 1 tablet by mouth once daily. 30 tablet 11 01/14/2018 Active omeprazole (PRILOSEC) 20 mg Delayed-Release capsuleIndications:A bdominal pain, epigastric Take 30-60 minutes before a meal/food once a day. 30 capsule 11 01/27/2019 Active loratadine (CLARITIN) 10 mg liqui-gel capsule Daily 04/24/2022 Active Bifidobacterium Infantis cap every day 04/24/2022 Active docusate sodium 100 mg/5 mL enem twice a day 03/28/2022 Active Active Problems Problem Noted Date Diagnosed Date Urinary frequency 05/06/2016 Immunizations Name Administration Dates Next Due Hepatitis B (Adult) 02/27/1993,08/03/1992,1991 Influenza A (H1N1), Live Intranasal 08/31/2009 Influenza Virus, Unspecified 07/02/2017 Influenza, IIV3 (Age 6-35 mos) 08/16/2014,2008 Influenza, IIV3 (Age >=3 years) 07/04/2016,06/29,07/12/2013 Tdap 12/31/2007 Social History Tobacco Use Types Packs/Day Years Used Date Smoking Tobacco: Former Cigarettes 0.3 32 0 10/16/1970 - 10/16/2002 Smokeless Tobacco: Never Tobacco Cessation:Counseling Given: Yes Alcohol Use Standard Drinks/Week Comments No 0 (1 standard drink = 0.6 oz pur e alcohol) Sober since March 2013 Social Connections Answer Date Recorded Frequency of Communication with Friends and Fami ly Not on file 11/27/2022 Sex and Gender Information Value Date Recorded Sex Assigned at Not on file Gender Identity Not on file Sexual Orientation Not on file Obstetrics History Last Filed Vital Signs Vital Sign Reading Time Taken Comments Blood Pressure 137/73 11/27/2022 2:43 PM CDT Pulse 99 11/27/2022 2:43 PM CDT Temperature 36.4 ??C (97.6 ??F) 07/07/2017 2:46 PM CD T Respiratory Rate 14 09/23/2016 10:50 AM SECURITY SOLUTIONS ENGINEER Oxygen Saturation 97% 11/27/2022 2:43 PM CDT Inhaled Oxygen Concentration - - Weight 88.5 kg (195 lb) 11/27/2022 2:43 PM CDT Height 165.1 cm (5' 5) 07/07/2017 2:46 PM CDT Body Mass Index 32.45 07/07/2017 2:46 PM CDT Plan of Treatment Health Maintenance Due Date Last Done Comments Depression screening for age 12+ 1972 HIV for age 15-65 02/24/1975 Hepatitis C screening for age 18-79 02/24/1978 Colonoscopy through age 75 02/24/2005 Lipids for age 45-75 02/24/2005 Mammogram for age 45-75 02/24/2005 Zoster (shingles) series for age 50+ (1 of 2) 02/24/2010 Tetanus booster 12/30/2017 12/31/2007 BMI (ht and wt on same day) for age 18+ 07/07/2018 07/07/2017, 07/01/2016, 05/06/2016 Pap test for age 21-65 10/26/2022 , 10/26/2019, 05/24/2015, Additional history exists COVID-19 vaccine series (2022-24 season) 2023 06/25/2022, 02/21/2022, 07/23/2021, Additional history exists Influenza for age 50-64 05/16/2024 07/02/20 17, 07/04/2016, 06/29/2015, Additional history exists Tdap Completed 12/31/2007 Pneumococcal series for age 6-64 Aged Out No longer eligible based on patient's age to complete this topic Procedures Procedure Name Priority Date/Time Associated Diagnosis Comments LEAD ACCOUNTANT THIN PREP PAP SCREEN IMAGED Routine 10/26/2019 3:00 PM SECURITY SOLUTIONS ENGINEER from Last 3 Months or Most Recently Relevant to Health Maintenance Results * LEAD ACCOUNTANT THIN PREP PAP SCREEN IMAGED (10/26/2019 3:00 PM SECURITY SOLUTIONS ENGINEER) Case Report Gynecologic Cytology Report ? Case: [id number] ? Authorizing Provider: ??Guicho Bridges MD ?Collected: ? 10/26/2019 1500 ? Ordering Location: ? [facility] ?Received: ?10/27/2019 1636 ? First Screen: ?Estephania Hickman ? Specimen: ?LEAD ACCOUNTANT ThinPrep Vial Screening, Cervical/Vaginal ? 11/07/2019 1:04 PM [facility] INTERPRETATION/ RESULT NEGATIVE FOR INTRAEPITHELIAL LESION OR MALIGNANCY (NIL) (none) 11/07/2019 1:04 PM [facility] IMEN ADEQUACY Satisfactory for evaluation Endocervical component present 11/07/2019 1:04 PM [facility] HPV REQUEST HPV and PAP 11/07/2019 1:04 PM [facility] Additional Information 11/07/2019 1:04 PM [facility] Comment: Interpreted at [facility] [place] [facility] - [address], [place] [address] Automated Review Successful 11/07/2019 1:04 PM [facility] Comment:Specimen processed s uccessfully by automated lung splitter device, ThinPrep Imaging System, [employer] ANCILLARY TESTING LEAD ACCOUNTANT HPV Ordered, Please see separate report 11/07/2019 1:04 PM [facility] Note The pap test is a screening technique, not a diagnostic procedure. It is used primarily to screen for squamous cancers and precursor lesions. Published studies have shown that it is subject to both false negative and false positive results. The pap test should not be used as the sole means to diagnose or exclude pre-malignant and malignant lesions. 11/07/2019 1:04 PM SECURITY SOLUTIONS ENGINEER [email or web address] Other (Cervical/Vagina l) 10/26/2019 3:00 PM SECURITY SOLUTIONS ENGINEER 10/27/2019 4:36 PM SECURITY SOLUTIONS ENGINEER Guicho Bridges MD PATHOLOGY/CYTOLOGY [email or web address] [address] [place] [address], from Last 3 Months or Most Recently Relevant to Health Maintenance Care Teams Hereditary Cancer Program Coordinator Relationship Specialty Start Date End Date Guicho Bridges MD [address] [place] [phone] PCP - General Family Practice 07/07/17
== END 2024-01-27 10:49 | disposition home or self-care (01) ==
PROVIDERS: PCP Family Medicine; Visit Provider Family Medicine
DX: R00.2 Palpitations (principal)
CPT/HCPCS: 80053

== ENCOUNTER 2024-03-23 12:56 | Outpatient (CLI) | payer OTHER, SELFPAY ==
--- OUTSIDE RECORDS SUMMARY | 2024-03-23 13:05 | XMS_ITS | Clinical Summary ---
Author Organization [facility] Address [place], [place] [address] Care Team Providers Care Whittling Room Operator Name Role Phone Guicho Bridges MD Primary Care Provider Allergies Active Allergy Reactions Criticality Noted Date [...] T Respiratory Rate 14 09/23/2016 10:50 AM EVENTS INTERN Oxygen Saturation 97% 11/27/2022 2:43 PM CDT [...] Procedure Name Priority Date/Time Associated Diagnosis Comments ALLERGIST/IMMUNOLOGIST THIN PREP PAP SCREEN IMAGED Routine 10/26/2019 3:00 PM EVENTS INTERN from Last 3 Months or Most Recently Relevant to Health Maintenance Results * ALLERGIST/IMMUNOLOGIST THIN PREP PAP SCREEN IMAGED (10/26/2019 3:00 PM [facility]ENTS INTERN) Case Report Gynecologic Cytology Report ? Case: [id number] ? Authorizing Provider: ??Guicho Bridges MD ?Collected: ? 10/26/2019 1500 ? Ordering Location: ? [facility] ?Received: ?10/27/2019 1636 ? First Screen: ?Estephania Hickman ? Specimen: ?ALLERGIST/IMMUNOLOGIST ThinPrep Vial Screening, Cervical/Vaginal ? 11/07/2019 1:04 PM [facility] INTERPRETATION/ RESULT NEGATIVE FOR INTRAEPITHELIAL LESION OR MALIGNANCY (NIL) (none) 11/07/2019 1:04 PM [facility] IMEN ADEQUACY Satisfactory for evaluation Endocervical component present 11/07/2019 1:04 PM [facility] HPV REQUEST HPV and PAP 11/07/2019 1:04 PM [facility] Additional Information 11/07/2019 1:04 PM [facility] Comment: Interpreted at [facility] - [address], [place] [address] Automated Review Successful 11/07/2019 1:04 PM [facility] Comment:Specimen processed s uccessfully by automated inductor tester device, ThinPrep Imaging System, [employer] ANCILLARY TESTING ALLERGIST/IMMUNOLOGIST HPV Ordered, Please see separate report 11/07/2019 1:04 PM [facility] Note The pap test is [...] pre-malignant and malignant lesions. 11/07/2019 1:04 PM EVENTS INTERN [facility] [employer] LABORATORY-C ENTRAL LABORATORY Other (Cervical/Vagina l) 10/26/2019 3:00 PM EVENTS INTERN 10/27/2019 4:36 PM EVENTS INTERN Guicho Bridges MD [facility]OLOGY[facility]Y [facility] [address] [place] [address], from Last 3 Months or Most Recently Relevant to Health Maintenance Care Teams Whittling Room Operator Relationship Specialty Start Date End Date Guicho Bridges MD [address] [place] [phone] PCP - General Family Practice 07/07/17
[2024-03-23 16:19] LABS: Basophils Absolute Auto 0.03 K/uL (0.00-0.30); Basophils Percent Auto 0.6 % (0.0-3.0); Eosinophils Absolute Auto 0.18 K/uL (0.00-0.50); Eosinophils Percent Auto 3.3 % (0.0-7.0); Hematocrit 39.8 % (33.0-51.0); Immature Granulocytes Abs Auto 0.01 K/uL (0.00-0.30); Immature Granulocytes Pct Auto 0.2 %; Lymphocytes Absolute Auto 1.11 K/uL (0.90-2.90); Lymphocytes Percent Auto 20.5 % (20-44); Mean Corpuscular HGB Conc 33 gm/dL (32-36); Mean Corpuscular Hemoglobin 31 pg (26-34); Mean Corpuscular Volume 96 fL (80-100); Monocytes Percent Auto 8.9 % (0.0-11.0); Neutrophils Absolute Auto 3.61 K/uL (1.7-7.0); Neutrophils Percent Auto 66.5 % (42.0-72.0); Platelet Count* 246 K/uL (140-440); RDW Coefficient of Variation % 13.3 % (11.5-15.5); Red Blood Count 4.16 m/uL (4.00-5.20); White Blood Count* 5.42 K/uL (4.50-11.00)
[2024-03-23 16:20] LABS: Slide Review Reflex No
== END 2024-03-23 12:57 | disposition home or self-care (01) ==
LOC: NPINS 13:03
PROVIDERS: PCP Family Medicine; Visit Provider Psychiatry & Neurology Psychiatry
DX: F52.9 Unspecified sexual dysfunction not due to a substance or known physiological condition (principal)
CPT/HCPCS: 85025

== ENCOUNTER 2024-05-04 13:34 | Outpatient (REF) | payer OTHER, SELFPAY ==
[2024-05-04 14:27] LABS: Basophils Absolute Auto 0.04 K/uL (0.00-0.30); Basophils Percent Auto 0.6 % (0.0-3.0); Eosinophils Absolute Auto 0.22 K/uL (0.00-0.50); Eosinophils Percent Auto 3.5 % (0.0-7.0); Hematocrit 43.3 % (33.0-51.0); Hemoglobin* 13.9 gm/dL (12.0-16.0); Immature Granulocytes Abs Auto 0.01 K/uL (0.00-0.30); Immature Granulocytes Pct Auto 0.2 %; Lymphocytes Absolute Auto 1.71 K/uL (0.90-2.90); Lymphocytes Percent Auto 27.6 % (20-44); Mean Corpuscular HGB Conc 32 gm/dL (32-36); Mean Corpuscular Hemoglobin 31 pg (26-34); Mean Corpuscular Volume 97 fL (80-100); Monocytes Percent Auto 8.4 % (0.0-11.0); Neutrophils Percent Auto 59.7 % (42.0-72.0); Platelet Count* 248 K/uL (140-440); RDW Coefficient of Variation % 13.1 % (11.5-15.5); Red Blood Count 4.46 m/uL (4.00-5.20)
[2024-05-04 14:31] LABS: Slide Review Reflex No
== END 2024-05-04 13:35 | disposition home or self-care (01) ==
LOC: NPINS 13:34
PROVIDERS: Neurological Surgery; PCP Family Medicine
DX: Z00.00 Encounter for general adult medical examination without abnormal findings (principal); E78.5 Hyperlipidemia, unspecified; E11.9 Type 2 diabetes mellitus without complications; R14.0 Abdominal distension (gaseous); F41.9 Anxiety disorder, unspecified; F25.0 Schizoaffective disorder, bipolar type; E73.9 Lactose intolerance, unspecified
CPT/HCPCS: 80053; 80061; 82043; 82570; 85025

== ENCOUNTER 2024-12-23 10:45 | Outpatient (CLI) | payer OTHER, SELFPAY ==
[2024-12-23 11:06] LABS: Basophils Absolute Auto 0.02 K/uL (0.00-0.30); Basophils Percent Auto 0.4 % (0.0-3.0); Eosinophils Absolute Auto 0.12 K/uL (0.00-0.50); Eosinophils Percent Auto 2.5 % (0.0-7.0); Hematocrit 41.3 % (33.0-51.0); Hemoglobin* 13.4 gm/dL (12.0-16.0); Immature Granulocytes Abs Auto 0.02 K/uL (0.00-0.30); Immature Granulocytes Pct Auto 0.4 %; Lymphocytes Absolute Auto 1.75 K/uL (0.90-2.90); Lymphocytes Percent Auto 35.9 % (20-44); Mean Corpuscular HGB Conc 32 gm/dL (32-36); Mean Corpuscular Hemoglobin 31 pg (26-34); Mean Corpuscular Volume 95 fL (80-100); Neutrophils Absolute Auto 2.52 K/uL (1.7-7.0); Neutrophils Percent Auto 51.8 % (42.0-72.0); Platelet Count* 260 K/uL (140-440); RDW Coefficient of Variation % 13.2 % (11.5-15.5); Red Blood Count 4.35 m/uL (4.00-5.20); White Blood Count* 4.87 K/uL (4.50-11.00)
[2024-12-23 11:09] LABS: Slide Review Reflex No
== END 2024-12-23 10:46 | disposition home or self-care (01) ==
LOC: NPINS 10:48
PROVIDERS: PCP Family Medicine; Visit Provider Psychiatry & Neurology Psychiatry
DX: F31.9 Bipolar disorder, unspecified (principal); F25.9 Schizoaffective disorder, unspecified
CPT/HCPCS: 85025

== ENCOUNTER 2025-02-01 11:08 | Outpatient (CLI) | payer OTHER, SELFPAY ==
[2025-02-01 12:23] LABS: Basophils Absolute Auto 0.02 K/uL (0.00-0.30); Basophils Percent Auto 0.4 % (0.0-3.0); Eosinophils Absolute Auto 0.15 K/uL (0.00-0.50); Eosinophils Percent Auto 3.1 % (0.0-7.0); Hematocrit 38.9 % (33.0-51.0); Hemoglobin* 12.5 gm/dL (12.0-16.0); Immature Granulocytes Abs Auto 0.02 K/uL (0.00-0.30); Immature Granulocytes Pct Auto 0.4 %; Lymphocytes Absolute Auto 1.68 K/uL (0.90-2.90); Lymphocytes Percent Auto 35.1 % (20-44); Mean Corpuscular HGB Conc 32 gm/dL (32-36); Mean Corpuscular Hemoglobin 31 pg (26-34); Mean Corpuscular Volume 96 fL (80-100); Monocytes Percent Auto 9.2 % (0.0-11.0); Neutrophils Absolute Auto 2.47 K/uL (1.7-7.0); Neutrophils Percent Auto 51.8 % (42.0-72.0); Platelet Count* 262 K/uL (140-440); RDW Coefficient of Variation % 13.3 % (11.5-15.5); Red Blood Count 4.04 m/uL (4.00-5.20); White Blood Count* 4.78 K/uL (4.50-11.00)
[2025-02-01 12:24] LABS: Slide Review Reflex No
== END 2025-02-01 11:09 | disposition home or self-care (01) ==
LOC: NPINS 11:09
PROVIDERS: PCP Family Medicine; Visit Provider Psychiatry & Neurology Psychiatry
DX: F31.9 Bipolar disorder, unspecified (principal); F25.9 Schizoaffective disorder, unspecified; F41.9 Anxiety disorder, unspecified; Z79.899 Other long term (current) drug therapy
CPT/HCPCS: 85025

== ENCOUNTER 2025-02-18 13:09 | Outpatient (CLI) | payer OTHER, SELFPAY ==
[2025-02-18 14:01] LABS: Basophils Absolute Auto 0.01 K/uL (0.00-0.30); Basophils Percent Auto 0.2 % (0.0-3.0); Eosinophils Absolute Auto 0.14 K/uL (0.00-0.50); Eosinophils Percent Auto 2.9 % (0.0-7.0); Hematocrit 37.4 % (33.0-51.0); Hemoglobin* 12.4 gm/dL (12.0-16.0); Immature Granulocytes Abs Auto 0.01 K/uL (0.00-0.30); Immature Granulocytes Pct Auto 0.2 %; Lymphocytes Absolute Auto 1.37 K/uL (0.90-2.90); Lymphocytes Percent Auto 28.3 % (20-44); Mean Corpuscular HGB Conc 33 gm/dL (32-36); Mean Corpuscular Hemoglobin 32 pg (26-34); Mean Corpuscular Volume 95 fL (80-100); Monocytes Percent Auto 12.6 % (0.0-11.0); Neutrophils Percent Auto 55.8 % (42.0-72.0); Platelet Count* 262 K/uL (140-440); RDW Coefficient of Variation % 13.1 % (11.5-15.5); Red Blood Count 3.94 m/uL (4.00-5.20); White Blood Count* 4.84 K/uL (4.50-11.00)
[2025-02-18 14:20] LABS: Slide Review Reflex No
== END 2025-02-18 13:10 | disposition home or self-care (01) ==
LOC: NPINS 13:11
PROVIDERS: PCP Family Medicine; Visit Provider Psychiatry & Neurology Psychiatry
DX: F31.9 Bipolar disorder, unspecified (principal); F25.9 Schizoaffective disorder, unspecified
CPT/HCPCS: 85025

== ENCOUNTER 2025-04-13 14:22 | Outpatient (CLI) | payer OTHER, SELFPAY ==
[2025-04-13 17:13] LABS: Hematocrit 37.8 % (33.0-51.0); Hemoglobin* 12.5 gm/dL (12.0-16.0); Immature Granulocytes Abs Auto 0.01 K/uL (0.00-0.30); Immature Granulocytes Pct Auto 0.2 %; Lymphocytes Absolute Auto 1.54 K/uL (0.90-2.90); Mean Corpuscular HGB Conc 33 gm/dL (32-36); Mean Corpuscular Hemoglobin 32 pg (26-34); Mean Corpuscular Volume 96 fL (80-100); RDW Coefficient of Variation % 13.0 % (11.5-15.5); Red Blood Count 3.95 m/uL (4.00-5.20); White Blood Count* 5.22 K/uL (4.50-11.00)
[2025-04-13 17:18] LABS: Slide Review Reflex No
== END 2025-04-13 14:23 | disposition home or self-care (01) ==
LOC: NPINS 14:24
PROVIDERS: PCP Family Medicine; Visit Provider Psychiatry & Neurology Psychiatry
DX: F31.9 Bipolar disorder, unspecified (principal); F25.9 Schizoaffective disorder, unspecified
CPT/HCPCS: 85025

== ENCOUNTER 2025-05-11 11:35 | Outpatient (CLI) | payer OTHER, SELFPAY | END 2025-05-11 11:36 | disposition home or self-care (01) | LOC: NFLDREF 05-13 10:02 | PROVIDERS: PCP Family Medicine; Referring Provider Family Medicine; Visit Provider Family Medicine | DX: Z00.00 Encounter for general adult medical examination without abnormal findings (principal); E11.9 Type 2 diabetes mellitus without complications; E78.5 Hyperlipidemia, unspecified; K59.09 Other constipation | CPT/HCPCS: 80053; 80061; 82043; 82570 ==

== ENCOUNTER 2025-05-31 10:59 | Outpatient (CLI) | payer OTHER, SELFPAY | END 2025-05-31 11:00 | disposition home or self-care (01) | LOC: NFLDREF 06-06 16:21 | PROVIDERS: PCP Family Medicine; Referring Provider Family Medicine; Visit Provider Family Medicine | DX: E21.0 Primary hyperparathyroidism (principal) | CPT/HCPCS: 83970 ==

== ENCOUNTER 2025-06-22 10:16 | Outpatient (CLI) | payer OTHER, SELFPAY | END 2025-06-22 10:17 | disposition home or self-care (01) | PROVIDERS: PCP Family Medicine; Visit Provider Family Medicine | DX: E21.0 Primary hyperparathyroidism (principal) | CPT/HCPCS: 82306 ==

== ENCOUNTER 2025-06-24 10:34 | Outpatient (CLI) | payer OTHER, SELFPAY | END 2025-06-24 10:35 | disposition home or self-care (01) | LOC: NFLDREF 06-27 18:15 | PROVIDERS: PCP Family Medicine; Referring Provider Family Medicine; Visit Provider Family Medicine | DX: E21.0 Primary hyperparathyroidism (principal) | CPT/HCPCS: 82340 ==

== ENCOUNTER 2025-07-19 11:53 | Outpatient (CLI) | payer OTHER, SELFPAY ==
--- NOTE | 2025-07-19 12:30 | CRLHL7_ITS ---
For Patients: As a result of the Century Cures Act, medical imaging exams and procedure reports are released immediately into your electronic medical record. You may view this report before your referring provider. If you have questions, please contact your health care provider. INDICATION: Hyperparathyroidism. TECHNIQUE: 20.0 mCi tc-99m labeled Sestamibi. Planar images were acquired immediately after injection, at 15 minutes, and 30 minutes after injection. FINDINGS: Initial imaging demonstrates physiologic uptake within the nasal and oral mucosa, parotid glands, submandibular salivary glands, thyroid gland, myocardium, and liver. 15-minute planar image is essentially unchanged when compared to the immediate post injection image. At 3 hours, there is incomplete washout of activity from the thyroid gland. There is slightly more activity within the expected location of the inferior right thyroid gland. Consider correlation with a thyroid ultrasound to assess for extrathyroidal lesions. A 4D CT of the neck utilizing the parathyroid protocol may be helpful. IMPRESSION: Mild persistent asymmetry within the expected location of the inferior right thyroid gland on the 3 hour delayed planar image, possibly sales representative jewelry of a parathyroid adenoma. An ultrasound, and/or a [address] scan using the parathyroid protocol is recommended. Tomer Frankel M.D. Diagnostic/Nuclear Medicine Radiologist [email or web address] Transcribed: 11:14 am DW/Dictated by: Tomer Frankel MD @ 07/20/2025 10:17:00 AM (Electronically Signed)
== END 2025-07-19 11:54 | disposition home or self-care (01) ==
LOC: NM 11:54
PROVIDERS: PCP Family Medicine; Visit Provider Family Medicine
DX: E21.0 Primary hyperparathyroidism (principal)
CPT/HCPCS: 78070; A9500

== ENCOUNTER 2025-07-28 15:10 | Outpatient (CLI) | payer OTHER, SELFPAY ==
--- NOTE | 2025-07-28 15:30 | CRLHL7_ITS ---
For Patients: As a result of the Century Cures Act, medical imaging exams and procedure reports are released immediately into your electronic medical record. You may view this report before your referring provider. If you have questions, please contact your health care provider. XR DXA Bone Mineral Density (BMD) Current height (in): 64.0. Weight (lb): 191.0. Menopause age: 50. Ethnicity: White. 1. Have you had a previous hip or vertebral fracture? No. 2. Have you had any fractures during your adult life which did not result from significant trauma (e.g., auto accident)? No. 3. Did either of your parents have a hip fracture? No. 4. Do you smoke? No. 5. Have you ever taken Glucocorticoids? No. 6. Do you have rheumatoid arthritis? No. 7. Do you have secondary osteoporosis? No. 8. Do you drink 3 or more alcoholic drinks per day? No. 9. Are you being treated for osteoporosis? No. 10. Have you ever taken any of the following medications: Actonel, Evista, Fosamax, Miacalcin, Reclast, Boniva, Forteo, HRT (i.e. estrogen/hormone therapy), Protelos, Prolia, Vitamin D, Calcium, other ??? please specify. ANSWER: Yes, Vitamin D. 11. Do you have any of the following medical conditions: Anorexia or bulimia, asthma or emphysema, end stage renal disease, hyperparathyroidism, any seizure disorders, cancer, inflammatory bowel diseases, hysterectomy, other ??? please specify. ANSWER: No. 12. What was your maximum height (inches)? 65. 13. Do you perform weight bearing exercise regularly? Yes. 14. Do you regularly consume dairy products? Yes. 15. Do you drink caffeinated beverages? Yes. If female: 16. At what age did your period start? 12. 17. Are you premenopausal? No. 18. How many full term pregnancies have you had? 0. 19. Have you ever missed your period for more than 6 months in a row (not including or menopause)? No. TECHNIQUE: Bone mineral density study was performed using the TAPQUAD. FINDINGS: The results of the study expressed as bone mineral density (BMD) are as follows: Lumbar spine L1 to L4: BMD: 0.975 g/cm2. T-score: -0.7. Z-score: 1.1. Neck Left: BMD: 0.768 g/cm2. T-score: -0.7. Z-score: 0.8. Right: BMD: 0.712 g/cm2. T-score: -1.2. Z-score: 0.3. Total Left: BMD: 0.961 g/cm2. T-score: 0.2. Z-score: 1.4. Right: BMD: 0.973 g/cm2. T-score: 0.3. Z-score: 1.5. IMPRESSION: Osteopenia. FRAX 10-year Fracture Risk Major Osteoporotic Fracture: 7.9 percent Hip Fracture: 0.7 percent Reported Risk Factors: [place] () Neck BMD=0.712, BMI=32.8 Cecily Hastings M.D. Body/Diagnostic Radiologist [email or web address] SP/Dictated by: Cecily Hastings MD @ 07/29/2025 4:56:00 AM (Electronically Signed)
== END 2025-07-28 15:11 | disposition home or self-care (01) ==
LOC: RAD 15:12
PROVIDERS: PCP Family Medicine; Visit Provider Family Medicine
DX: M85.80 Other specified disorders of bone density and structure, unspecified site (principal); Z78.0 Asymptomatic menopausal state
CPT/HCPCS: 77080